=== PATIENT | male | born 1975 | race Caucasian/White ===

== ENCOUNTER 2021-04-30 16:22 | Emergency (ER) | payer OTHER, SELFPAY ==
[2021-04-30] VITALS (14 sets, daily range): BP systolic 119–162; BP diastolic 62–106; PULSE 71–94; RESP 13–22; TEMP 37.2; O2SAT 95–99; BMI 25.8
--- NOTE | 2021-04-30 16:39 | CT_ITS ---
PROCEDURE INFORMATION: Exam: CT Head Without Contrast Exam date and time: 04/30/2021 4:39 PM Age: 46 years old Clinical indication: Dizziness TECHNIQUE: Imaging protocol: Computed tomography of the head without contrast. Radiation optimization: All CT scans at this facility use at least one of these dose optimization techniques: automated exposure control; mA and/or kV adjustment per patient size (includes targeted exams where dose is matched to clinical indication); or iterative reconstruction. COMPARISON: No relevant prior studies available. FINDINGS: Brain: No acute intracranial findings. No intracranial hemorrhage. No edema, swelling or mass-effect. No definite white matter disease. 6 mm focus of diminished attenuation in deep left temporal lobe series 2, image 19 which may be volume averaging artifact/prominent CSF space versus true white matter lesion. Cerebral ventricles: The ventricles are normal for age. No hydrocephalus. Paranasal sinuses: Mild bilateral ethmoid mucosal thickening. No acute air-fluid levels or significant sinus opacification as visualized. Mastoid air cells: Mastoids are unremarkable as visualized, no effusions. Orbital cavity: No acute findings in the orbits, as visualized. Vasculature: A few calcified atherosclerotic plaques within the intracranial carotid arteries. Bones/joints: No acute skull fracture. No lytic lesions. Soft tissues: There are no soft tissue masses or fluid collections. IMPRESSION: 1. No acute findings. 2. There is no CT evidence of intracranial mass, intracranial hemorrhage, or acute infarct. 3. Additional nonemergency and chronic findings as above.
--- NOTE | 2021-04-30 16:40 | XR_ITS ---
PROCEDURE INFORMATION: Exam: XR Chest Exam date and time: 04/30/2021 4:40 PM Age: 46 years old Clinical indication: Other: Dizziness TECHNIQUE: Imaging protocol: XR of the chest. Views: 1 view. Portable AP upright exam 5:15 p.m. COMPARISON: No relevant prior studies available. FINDINGS: Lungs: Slight lower pulmonary interstitial prominence and peribronchial thickening, which may be chronic rather than acute in nature, no prior exams are available to compare. No focal consolidation. Pleural spaces: Unremarkable. No significant pleural effusion. No pneumothorax. Heart/Mediastinum: The cardiac silhouette appears mildly enlarged, accentuated by AP technique. Calcified left hilar lymph nodes. Bones/joints: An old healed mid right clavicle fracture deformity. Mild spinal degenerative changes. Other findings: Overlying radiographer cardiac catheterization electrodes. IMPRESSION: 1. No definite acute findings. 2. Non emergency and chronic findings as above.
--- NOTE | 2021-04-30 16:40 | ECG_ITS ---
APPROVED REPORT Exam: Resting ECG HR:92 bpm ECG Measurements Heart Rate 92 AXES AL 156 P 62 QRSd 70 QRS 11 QT 374 T 47 QTc 462 Conclusion Normal sinus rhythm Left atrial abnormality Borderline ECG Electronically signed by : Marko Galo MD 05/01/2021 08:56:26
--- NOTE | 2021-04-30 17:17 | CT_ITS ---
PROCEDURE INFORMATION: Exam: CT Angiography Head With Contrast, Arteriography Exam date and time: 04/30/2021 5:17 PM Age: 46 years old Clinical indication: Dizziness and giddiness; Additional info: Dizziness; History of acomm aneurysm TECHNIQUE: Imaging protocol: Computed tomography angiography of the head with contrast. Exam focused on the arteries. 3D rendering (Not supervised by radiologist): MIP and/or 3D reconstructed images were created by the technologist. Radiation optimization: All CT scans at this facility use at least one of these dose optimization techniques: automated exposure control; mA and/or kV adjustment per patient size (includes targeted exams where dose is matched to clinical indication); or iterative reconstruction. Contrast material: ISOVUE 370; Contrast volume: 100 ml; Contrast route: INTRAVENOUS (IV); COMPARISON: CT HEAD/BRAIN WO CON 04/30/2021 5:22 PM FINDINGS: ANTERIOR CIRCULATION: Right internal carotid artery: Unremarkable. Intracranial segment is patent with no significant stenosis. No definite aneurysm, small aneurysms could be obscured by surrounding cavernous sinus enhancement. Right middle cerebral artery: Unremarkable. No occlusion or significant stenosis. No aneurysm. Right anterior cerebral artery: Unremarkable. No occlusion or significant stenosis. No aneurysm. Anterior communicating artery: There is an aneurysm in the region of the anterior communicating artery, in the midline, abutting the genus of right and left anterior cerebral arteries . This measures approximately 5 x 8 by 4 mm diameter, see axial series 2 images 400 17-422, sagittal series 604, images 43-46, coronal series 605, images 42-45. Left internal carotid artery: A few tiny calcified plaques in the internal carotid artery siphon. Minimal narrowing less than 50%. Intracranial segment is patent with no high-grade stenosis. No definite aneurysm, small aneurysms could be obscured by surrounding cavernous sinus enhancement. Left middle cerebral artery: Unremarkable. No occlusion or significant stenosis. No aneurysm. Left anterior cerebral artery: Unremarkable. No occlusion or significant stenosis. No aneurysm. POSTERIOR CIRCULATION: Right vertebral artery: Unremarkable. No occlusion or significant stenosis. No aneurysm. Left vertebral artery: Unremarkable. No occlusion or significant stenosis. No aneurysm. Basilar artery: Unremarkable. No occlusion or significant stenosis. No aneurysm. Right posterior cerebral artery: Unremarkable. No occlusion or significant stenosis. No aneurysm. Left posterior cerebral artery: Unremarkable. No occlusion or significant stenosis. No aneurysm. Brain: No definite mass, mass effect, or midline shift. Cerebral ventricles: No ventriculomegaly. Bones/joints: Unremarkable. No acute fracture. Soft tissues: Unremarkable. IMPRESSION: 1. 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 No active bleed/contrast extravasation seen. 2. Minimal atherosclerotic plaques in the left internal carotid artery siphon, very mild narrowing less than 50%. 3. No other large vessel stenosis or occlusion.
--- NOTE | 2021-04-30 17:17 | CT_ITS ---
PROCEDURE INFORMATION: Exam: CT Angiography Neck With Contrast Exam date and time: 04/30/2021 5:17 PM Age: 46 years old Clinical indication: Dizziness and giddiness; Additional info: Dizziness; History of acomm aneurysm TECHNIQUE: Imaging protocol: Computed tomography angiography of the neck with contrast. 3D rendering (Not supervised by radiologist): MIP and/or 3D reconstructed images were created by the technologist. Radiation optimization: All CT scans at this facility use at least one of these dose optimization techniques: automated exposure control; mA and/or kV adjustment per patient size (includes targeted exams where dose is matched to clinical indication); or iterative reconstruction. Contrast material: ISOVUE 370; Contrast volume: 100 ml; Contrast route: INTRAVENOUS (IV); COMPARISON: CT HEAD/BRAIN WO CON 04/30/2021 5:22 PM FINDINGS: Right common carotid artery: No stenosis. No dissection or occlusion. Some streak artifacts in the mediastinum. Right internal carotid artery: No stenosis of the extracranial segment. No dissection or occlusion. Right external carotid artery: No occlusion or stenosis of the origin. Left common carotid artery: No stenosis. No dissection or occlusion. Some streak artifacts in the mediastinum. Left internal carotid artery: No stenosis of the extracranial segment. No dissection or occlusion. Left external carotid artery: No occlusion or stenosis of the origin. Right vertebral artery: No stenosis. No dissection or occlusion. The right vertebral artery is minimally dominant. Left vertebral artery: No stenosis. No dissection or occlusion. Soft tissues: There are no soft tissue masses or fluid collections. Bones/joints: No acute fracture. Mild cervical spine degenerative changes. Multilevel disc narrowing and spondylosis. IMPRESSION: No stenosis or occlusion. REFERENCES: NASCET CRITERIA. The degree of internal carotid artery stenosis is based on NASCET criteria. Normal is no stenosis. Mild is less than 50% stenosis. Moderate is 50-69% stenosis. Severe is 70% to 99% stenosis. Total occlusion is no detectable patent lumen.
[2021-04-30 17:30] LABS: Basophils % 0.1 % (0.1-2.0); Eosinophils # 0.1 K/mm3 (0.0-0.4); Eosinophils % 0.5 % (0.1-12.0); Hematocrit 46.1 % (42.0-52.0); Hemoglobin 15.5 g/dL (14.1-18.0); Lymphocytes # 1.3 K/mm3 (0.7-4.5); Lymphocytes % 8.5 % (10-50); Mean Corpuscular HGB Conc 33.7 g/dL (31.8-35.4); Mean Corpuscular Volume 95.1 fl (80-94); Mean Platelet Volume 6.9 fl (7.4-10.4); Monocytes # 0.3 K/mm3 (0.1-1.0); Monocytes % 2.1 % (1.7-9.3); Neutrophils # 13.4 K/mm3 (1.8-7.8); Neutrophils % 88.8 % (37.0-80.0); Platelet Count 313 K/mm3 (142-424); Red Blood Count 4.85 M/mm3 (4.60-6.20); Red Cell Distribution Width 11.8 % (11.5-17.5); White Blood Count 15.1 K/mm3 (4.8-10.8)
[2021-04-30 17:34] LABS: MANUAL DIFFERENTIAL MANUAL DIFFERENTIAL (MANUAL DIFF)
[2021-04-30 17:37] LABS: Magnesium 1.5 mg/dl (1.6-2.3)
[2021-04-30 17:38] LABS: Alanine Aminotransferase 34 U/L (12-78); Albumin Level 4.6 g/dl (3.5-5.0); Albumin/Globulin Ratio 1.3 (1.1-1.8); Alkaline Phosphatase 90 U/L (38-126); Anion Gap 16.1 mEq/L (5-15); Aspartate Amino Transferase 33 U/L (17-59); Bilirubin,Total 0.6 mg/dl (0.2-1.3); Blood Urea Nitrogen 9 mg/dl (9-20); Calcium 9.6 mg/dl (8.4-10.2); Carbon Dioxide 26 mmol/L (22.0-30.0); Chloride 99 mmol/L (98-107); Creatinine Clearance Estimated 141 mL/min (50-200); Estimated Glomerular Filt Rate 120 ml/min (>60); GFR (African American) 146 ML/MIN (>60); Globulin 3.5 g/dL (1.3-3.2); Glucose 125 mg/dl (74-100); Potassium 4.1 mmoL/L (3.5-5.1); Sodium 137 mmol/L (136-145); Total Protein,Serum 8.1 g/dl (6.3-8.2)
[2021-04-30 17:53] LABS: Troponin I < 0.01 ng/ml (0.00-0.034)
[2021-04-30 17:56] LABS: Lymphocytes % 14 % (10-50); Monocytes % 5 % (2-9); Neutrophils % 81 % (42-76); Platelet Estimate Normal; RBC Morphology Normal; Total Cells Counted 100
[2021-04-30 20:32] LABS: Troponin I < 0.01 ng/ml (0.00-0.034)
--- NOTE | 2021-04-30 21:27 | [facility].EDGENADL ---
ED Disposition Clinical Impression: Vertigo Vomiting Qualifiers: Vomiting type: unspecified Vomiting Intractability: unspecified Nausea presence: with nausea Qualified Code(s): R11.2 - Nausea with vomiting, unspecified Disposition: Home, Self-Care Condition on Discharge: Fair Instructions: Vertigo, Dizziness, Nonvertigo Prescriptions: Meclizine HCl [Meclizine 25mg Tab] 25 mg PO TID 5 Days #15 tab Transmission Status: Pending to [facility] Ondansetron [Zofran 4mg ODT] 4 mg PO TIDP PRN #12 tab PRN Reason: Nausea Transmission Status: Pending to [facility] Referrals: Von Aranda MD [Primary Care Provider] - 05/02/21 3:00 pm - Critical Care Critical Care Time: No Attestation: On 04/30/21, the high probability of a clinically significant, sudden or life threatening deterioration of the following system(s) required my full and direct attention, intervention and personal management. The time I documented below is in addition to time spent performing reported procedures but includes the following listed in this critical care notation. Medical Decision Making - Medical Records Medical records reviewed: Yes: I reviewed the patient's medical records. - Trell Inquiry Pt receiving controlled substance: No Vital Signs: 04/30/21 16:23 04/30/21 17:00 04/30/21 17:14 Temperature 99 F Temperature Source Oral Pulse Rate 91 H 94 H Pulse Rate [Radial] 92 H Respiratory Rate 18 21 19 Blood Pressure 127/90 119/79 Blood Pressure [Right Arm] 145/88 H Blood Pressure Mean 100 101 Blood Pressure Mean [Right Arm] 107 Blood Pressure Position [Right Arm] Sitting 02 Sat by Pulse Oximetry 96 95 97 Oxygen Delivery Method Room Air 04/30/21 18:00 04/30/21 18:30 04/30/21 19:00 Temperature Temperature Source Pulse Rate 92 H 88 92 H Pulse Rate [Radial] Respiratory Rate 22 19 15 Blood Pressure 151/106 H 149/100 H 146/95 H Blood Pressure [Right Arm] Blood Pressure Mean 126 116 Blood Pressure Mean [Right Arm] Blood Pressure Position [Right Arm] 02 Sat by Pulse Oximetry 98 96 99 Oxygen Delivery Method 04/30/21 19:18 04/30/21 19:30 04/30/21 20:00 Temperature Temperature Source Pulse Rate 86 86 81 Pulse Rate [Radial] Respiratory Rate 17 Blood Pressure 154/90 H 149/96 H 136/94 H Blood Pressure [Right Arm] Blood Pressure Mean Blood Pressure Mean [Right Arm] Blood Pressure Position [Right Arm] 02 Sat by Pulse Oximetry 97 97 99 Oxygen Delivery Method - Lab Data Lab Results 04/30/21 17:21: WBC 15.1 H, RBC 4.85, Hgb 15.5, Hct 46.1, MCV 95.1 H, MCH 32.0 H, MCHC 33.7, RDW 11.8, Plt Count 313, MPV 6.9 L, Neut % (Auto) 88.8 H, Lymph % (Auto) 8.5 L, [place] % (Auto) 2.1, Eos % (Auto) 0.5, Baso % (Auto) 0.1, Neut # (Auto) 13.4 H, Lymph # (Auto) 1.3, [place] # (Auto) 0.3, Eos # (Auto) 0.1, Baso # (Auto) 0.0, Total Counted 100, Neutrophils % (Manual) 81 H, Lymphocytes % (Manual) 14, Monocytes % (Manual) 5, Platelet Estimate Normal, RBC Morphology Normal 04/30/21 17:21: Sodium 137, Potassium 4.1, Chloride 99, Carbon Dioxide 26, Anion Gap 16.1 H, BUN 9, Creatinine 0.70, Estimated Creat Clear 141, Estimated GFR 120, Est GFR ( Amer) 146, Glucose 125 H, Calcium 9.6, Total Bilirubin 0.6, AST 33, ALT 34, Alkaline Phosphatase 90, Troponin I < 0.01, Total Protein 8.1, Albumin 4.6, Globulin 3.5 H, Albumin/Globulin Ratio 1.3 04/30/21 17:21: Magnesium 1.5 L 04/30/21 20:03: Troponin I < 0.01 Result diagrams: 04/30/21 17:21 04/30/21 17:21 Orders (Tests/Meds): ED MEDICATIONS Discontinued Medications Generic Name Dose Route Start Last Admin Trade Name Freq PRN Reason Stop Dose Admin Lactated Ringer's 1,000 mls @ 999 mls/hr 04/30/21 17:30 04/30/21 18:48 Lactated Ringer's 1000 Ml Bag IV 04/30/21 18:30 999 mls/hr .[id number] MELVIN Administration Magnesium Sulfate 2 gm/ Sodium 104 mls @ 100 mls/hr 04/30/21 19:40 Chloride IV 04/30/21 20:42
== END 2021-04-30 22:55 | disposition home or self-care (01) ==
PROVIDERS: Emergency Provider Emergency Medicine; PCP Family Medicine
DX: R42 Dizziness and giddiness (principal); R11.2 Nausea with vomiting, unspecified; R51.9 Headache, unspecified; I10 Essential (primary) hypertension; E78.5 Hyperlipidemia, unspecified; M79.7 Fibromyalgia; F10.11 Alcohol abuse, in remission; F17.210 Nicotine dependence, cigarettes, uncomplicated; Z79.899 Other long term (current) drug therapy
CPT/HCPCS: 36415; 70450; 70496; 70498; 71045; 80053; 83735; 84484; 85007; 85025; 93005; 96374; 99283; Q9967

== ENCOUNTER → 2021-11-10 17:37 | Outpatient (CLI) | payer OTHER, SELFPAY ==
[2021-11-10 17:29] LABS: Basophils # 0.1 K/mm3 (0-0.2); Basophils % 0.6 % (0.1-2.0); Eosinophils # 0.1 K/mm3 (0.0-0.4); Eosinophils % 1.2 % (0.1-12.0); Hematocrit 43.1 % (42.0-52.0); Hemoglobin 14.2 g/dL (14.1-18.0); Lymphocytes # 2.8 K/mm3 (0.7-4.5); Lymphocytes % 32.1 % (10-50); Mean Corpuscular Hemoglobin 31.7 pg (27.0-31.2); Mean Corpuscular Volume 96.3 fl (80-94); Mean Platelet Volume 8.3 fl (7.4-10.4); Monocytes # 0.3 K/mm3 (0.1-1.0); Monocytes % 3.9 % (1.7-9.3); Neutrophils # 5.4 K/mm3 (1.8-7.8); Neutrophils % 62.2 % (37.0-80.0); Platelet Count 293 K/mm3 (142-424); Red Blood Count 4.48 M/mm3 (4.60-6.20); Red Cell Distribution Width 12.3 % (11.5-17.5); White Blood Count 8.7 K/mm3 (4.8-10.8)
[2021-11-10 17:40] LABS: Chloride 104 mmol/L (98-107); Potassium 4.3 mmoL/L (3.5-5.1); Sodium 135 mmol/L (136-145)
[2021-11-10 17:42] LABS: Alanine Aminotransferase 27 U/L (12-78); Aspartate Amino Transferase 33 U/L (17-59); Blood Urea Nitrogen 11 mg/dl (9-20); Estimated Glomerular Filt Rate 103 ml/min (>60); GFR (African American) 125 ML/MIN (>60)
[2021-11-10 17:43] LABS: Albumin Level 4.2 g/dl (3.5-5.0); Albumin/Globulin Ratio 1.6 (1.1-1.8); Alkaline Phosphatase 88 U/L (38-126); Anion Gap 12.3 mEq/L (5-15); Bilirubin,Total 0.8 mg/dl (0.2-1.3); Calcium 8.9 mg/dl (8.4-10.2); Carbon Dioxide 23 mmol/L (22.0-30.0); Globulin 2.6 g/dL (1.3-3.2); Glucose 73 mg/dl (74-100); Total Protein,Serum 6.8 g/dl (6.3-8.2)
[2021-11-10 18:13] LABS: Thyroid Stimulating Hormone 1.77 uIU/mL (0.465-4.68)
[2021-11-23 15:28] LABS: Testosterone, Total, LC/MS 355.2 ng/dL (264.0-916.0); Testosterone,Free 6.6 pg/mL (6.8-21.5)
== END ==
LOC: LAB.DROPOF 17:37
PROVIDERS: Visit Provider Family Medicine
DX: R53.83 Other fatigue (principal); I10 Essential (primary) hypertension; E78.5 Hyperlipidemia, unspecified; R63.5 Abnormal weight gain; Z79.899 Other long term (current) drug therapy; Z72.0 Tobacco use
CPT/HCPCS: 80053; 84402; 84403; 84443; 85025